=== PATIENT | male | born 1965 | race American Indian/Alaskan Native ===

== ENCOUNTER 2017-12-13 05:38 | Emergency (ER) | payer SELFPAY ==
[2017-12-13] MEDS ORDERED: ASPIRIN PO ONE (06:42)
[2017-12-13 07:11] LABS: Basophils % (Auto) 0.3 % (0.0-1.8); Eosinophils # (Auto) 0.1 K/mm3 (0.0-0.4); Hematocrit 42.5 % (35.5-45.6); Hemoglobin 13.7 gm/dl (11.8-15.2); Lymphocytes # (Auto) 1.7 K/mm3 (1.2-5.4); Lymphocytes % (Auto) 23.2 % (13.4-35.0); Mean Corpuscular HGB Conc 32 % (32-34); Mean Corpuscular Hemoglobin 28 pg (28-32); Mean Corpuscular Volume 86 fl (84-94); Monocytes # (Auto) 0.4 K/mm3 (0.0-0.8); Monocytes % (Auto) 5.2 % (0.0-7.3); Platelet Count 219 K/mm3 (140-440); Red Blood Count 4.92 M/mm3 (3.65-5.03); Red Cell Distribution Width 13.7 % (13.2-15.2)
[2017-12-13 07:22] LABS: BUN/Creatinine Ratio 14; Blood Urea Nitrogen 17 mg/dL (9-20); Hemolysis Index 15
[2017-12-13 08:03] VITALS: BP 112/81
[2017-12-13] MEDS ORDERED: ZOFRAN IV ONE (09:17)
[2017-12-13] MEDS ORDERED: SUBLIMAZE IV ONE (09:17)
--- NOTE | 2017-12-13 09:21 | Emergency Department Report ---
HPI - General Chief Complaint: Dizziness Time Seen by Provider: 12/13/17 08:58 - HPI HPI: Room 24 The patient is a 52-year-old male presenting with a chief complaint of left knee and right thigh pain after fall. The patient states this morning at 04:15 while inspecting his truck the patient states he tripped over a railroad tie that was lying over the ground and fell striking his left lower extremity. The patient now complains of pain in the left knee and right thigh. The patient states while waiting in the waiting room and became dizzy and felt diaphoretic. The patient was found to be hypotensive but this resolved spontaneously. Patient denies ever having chest pain or shortness of breath. 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 The patient gets his pain score 5-6/10 Location: [See above] Duration: [See above] Quality: Pain Severity: 5-6/10 Modifying factors: [see above] Context: [see above] Mode of transportation: [not driving] ED Past Medical Hx - Past Medical History Previous Medical History?: No Additional medical history: "pre-diabetic" - Surgical History Past Surgical History?: No - Family History Family history: no significant - Social History Smoking Status: Never Smoker Substance Use Type: None (denies illicit drug use) - Medications Home Medications: Home Medications Medication Instructions Recorded Confirmed Last Taken Type Cyclobenzaprine [Flexeril] 10 mg PO TID PRN #14 tablet 12/13/17 Unknown Rx HYDROcodone/APAP 5-325 [Bowdle 1 - 2 each PO Q6HR PRN #14 tablet 12/13/17 Unknown Rx 5/325] Ibuprofen [Motrin 800 MG tab] 800 mg PO Q8HR PRN #20 tablet 12/13/17 Unknown Rx ED Review of Systems ROS: Stated complaint: KNEE AND LEG PAIN Other details as noted in HPI Constitutional: no symptoms reported Eyes: denies: eye pain ENT: denies: throat pain Respiratory: denies: shortness of breath Cardiovascular: denies: chest pain Gastrointestinal: denies: abdominal pain Genitourinary: denies: dysuria Musculoskeletal: arthralgia, myalgia Neurological: denies: headache Physical Exam - Physical Exam Vital Signs: Vital Signs 12/13/17 12/13/17 12/13/17 05:58 06:37 08:02 Temperature 98.6 F 98.6 F Pulse Rate 56 L 58 L 79 Respiratory 14 18 18 Rate Blood Pressure 76/36 80/48 Blood Pressure 112/81 [Left] O2 Sat by Pulse 98 98 98 Oximetry Physical Exam: GENERAL: The patient is well-developed well-nourished male lying on stretcher not appearing to be in acute distress. [] HEENT: Normocephalic. Atraumatic. Extraocular motions are intact. Patient has moist mucous membranes. NECK: Supple. Trachea midline CHEST/LUNGS: Clear to auscultation. There is no respiratory distress noted. HEART/CARDIOVASCULAR: Regular. There is no tachycardia. There is no gallop rub or murmur. ABDOMEN: Abdomen is soft, nontender. Patient has normal bowel sounds. There is no abdominal distention. SKIN: There is no rash. There is no diaphoresis. NEURO: The patient is awake, alert, and oriented. The patient is cooperative. The patient has no focal neurologic deficits. The patient has normal speech. Cranial nerves II through XII grossly intact, no drift MUSCULOSKELETAL: There is tenderness and swelling of the left knee. There is a left knee effusion. There is tenderness of the right thigh. ED Course Vital Signs 12/13/17 12/13/17 12/13/17 05:58 06:37 08:02 Temperature 98.6 F 98.6 F Pulse Rate 56 L 58 L 79 Respiratory 14 18 18 Rate Blood Pressure 76/36 80/48 Blood Pressure 112/81 [Left] O2 Sat by Pulse 98 98 98 Oximetry - Reevaluation(s) Reevaluation #1: 12/13/17 11:05 Patient states he is doing well ED Medical Decision Making - Lab Data Result diagrams: 12/13/17 07:05 12/13/17 07:00 Laboratory Tests 12/13/17 12/13/17 12/13/17 06:26 07:00 07:05 WBC 7.3 RBC 4.92 Hgb 13.7 Hct 42.5 MCV 86 MCH 28 MCHC 32 RDW 13.7 Plt Count 219 Lymph % (Auto) 23.2 Darke % (Auto) 5.2 Eos % (Auto) 1.0 Baso % (Auto) 0.3 Lymph # 1.7 Darke # 0.4 Eos # 0.1 Baso # 0.0 Seg Neutrophils % 70.3 H Seg Neutrophils # 5.1 D-Dimer Sodium 142 Potassium 4.1 Chloride 101.8 Carbon Dioxide 27 Anion Gap 17 BUN 17 Creatinine 1.2 Estimated GFR > 60 BUN/Creatinine Ratio 14 Glucose 119 H POC Glucose 142 H Calcium 9.0 Troponin T < 0.010 Urine Opiates Screen Urine Methadone Screen Ur Barbiturates Screen Ur Phencyclidine Scrn Ur Amphetamines Screen U Benzodiazepines Scrn Urine Cocaine Screen U Marijuana (THC) Screen Drugs of Abuse Note 12/13/17 12/13/17 12/13/17 09:26 09:26 Unknown WBC RBC Hgb Hct MCV MCH MCHC RDW Plt Count Lymph % (Auto) Darke % (Auto) Eos % (Auto) Baso % (Auto) Lymph # Darke # Eos # Baso # Seg Neutrophils % Seg Neutrophils # D-Dimer < 135.00 Sodium Potassium Chloride Carbon Dioxide Anion Gap BUN Creatinine Estimated GFR BUN/Creatinine Ratio Glucose POC Glucose Calcium Troponin T < 0.010 Urine Opiates Screen Presumptive negative Urine Methadone Screen Presumptive negative Ur Barbiturates Screen Presumptive negative Ur Phencyclidine Scrn Presumptive negative Ur Amphetamines Screen Presumptive negative U Benzodiazepines Scrn Presumptive negative Urine Cocaine Screen Presumptive negative U Marijuana (THC) Screen Presumptive negative Drugs of Abuse Note Disclamer - EKG Data -: EKG Interpreted by Me EKG shows normal: sinus rhythm Rate: normal - EKG Data When compared to previous EKG there are: previous EKG unavailable Interpretation: nonspecific ST-T wave amada (flattened T-wave in lead 3) - Radiology Data Radiology results: image reviewed (left knee x-ray, right femur x-ray) interpreted by me: Left knee x-ray-no acute fracture Right femur x-ray-no acute fracture - Differential Diagnosis knee sprain, knee fracture, PE Critical care attestation.: If time is entered above; I have spent that time in minutes in the direct care of this critically ill patient, excluding procedure time. ED Disposition Clinical Impression: Left knee injury, Right thigh pain Disposition: DC- TO HOME OR SELFCARE Is pt being admited?: No Does the pt Need Aspirin: No Condition: Stable Instructions: Arthralgia (ED) Additional Instructions: Return to the emergency department immediately should you develop worsening symptoms, fever, inability to tolerate food or liquid or any other concerns. Prescriptions: Cyclobenzaprine [Flexeril] 10 mg PO TID PRN #14 tablet PRN Reason: Muscle Spasm HYDROcodone/APAP 5-325 [Bowdle 5/325] 1 - 2 each PO Q6HR PRN #14 tablet PRN Reason: Pain Ibuprofen [Motrin 800 MG tab] 800 mg PO Q8HR PRN #20 tablet PRN Reason: Pain Referrals: HENRY LEDESMA MD [Staff Physician] - 3-5 Days (Dr. Ledesma is an orthopedic surgeon. Please follow-up with him for further evaluation) Time of Disposition: 11:08
[2017-12-13] MEDS ORDERED: TORADOL IV ONE (09:37)
[2017-12-13 10:22] LABS: Amphetamine Screen,Urine PRESUMPTIVE NEGATIVE; Benzodiazepines Screen,Urine PRESUMPTIVE NEGATIVE; Cannabinoid Screen,Urine PRESUMPTIVE NEGATIVE; Cocaine Screen,Urine PRESUMPTIVE NEGATIVE; Methadone Screen,Urine PRESUMPTIVE NEGATIVE; Opiate Screen,Urine PRESUMPTIVE NEGATIVE
--- NOTE | 2017-12-13 10:31 | XRay Report ---
RIGHT FEMUR: Fall, pain. AP and lateral views of the femur demonstrate normal mineralization and contours for this patient's age. No destructive changes are noted and the adjacent soft tissues are normal. IMPRESSION: Normal right femur. Left knee: Fall, pain. The bones are well-mineralized. There is good alignment of the knee. No evidence of fracture. In the lateral projection the suprapatella bursa is difficult to clearly visualize but there is suspicion of a possible effusion. Impression: Suspicion of suprapatella effusion.
== END 2017-12-13 12:09 | disposition home or self-care (01) ==
LOC: ED 05:38
DX: S89.92XA Unspecified injury of left lower leg, initial encounter (principal); M79.651 Pain in right thigh; W18.30XA Fall on same level, unspecified, initial encounter; Y93.89 Activity, other specified; Y92.89 Other specified places as the place of occurrence of the external cause; Y99.8 Other external cause status
CPT/HCPCS: 29505; 36415; 73552; 73562; 80048; 80307; 82962; 84484; 85025; 85379; 93005; 93010; 96374; 99284; J1885; J2405; J3010